=== PATIENT | male | born 1965 | race African-American/Black ===

== ENCOUNTER 2018-07-28 16:33 | Emergency (ER) | payer OTHER | END 2018-07-28 17:53 | disposition other institution (70) | LOC: ED 16:33 | DX: Z02.89 Encounter for other administrative examinations (principal) ==

== ENCOUNTER 2018-07-28 16:33 | Emergency (ER) | payer MEDICAID ==
[~2018-07-28] VITALS: Ht 162.6 cm; Wt 117.9 kg
[2018-07-28 16:42] VITALS: Ht 162.6 cm; Wt 117.9 kg
[2018-07-28 17:52] VITALS: BP 145/95
== END 2018-07-28 17:53 | disposition other institution (70) ==
LOC: ED 16:33
DX: I10 Essential (primary) hypertension (principal); E11.9 Type 2 diabetes mellitus without complications; E78.5 Hyperlipidemia, unspecified; M10.9 Gout, unspecified; Z13.89 Encounter for screening for other disorder
CPT/HCPCS: 82962